=== PATIENT | male | born 1965 | race Caucasian/White ===

== ENCOUNTER 2024-12-30 22:32 | Emergency (ER) | payer OTHER, SELFPAY ==
[2024-12-30 22:38] VITALS: BP 112/85; O2SAT 100
[2024-12-30 22:41] VITALS: BP 112/85; PULSE 95; TEMP 36.3; O2SAT 100; BMI 25.8
[2024-12-30 22:46] LABS: Glucometer 113 mg/dL (74-106)
--- NOTE | 2024-12-30 22:51 | ECG_ITS ---
[facility] Test Date: 2024-12-30 Pat Name: MARIA G PATTERSON Department: Room: - Gender: Male Medical Lab Technologist: : 1965 Requested By: Chaz Mckeon Order Number: [id number] Reading MD: DORON RANDALL M.D. Measurements Intervals Hunters Rate: 98 P: 26 MN: 116 QRS: 41 QRSD: 86 T: 28 QT: 352 QTc: 408 Interpretive Statements 1100 Sinus rhythm 2210 Short MN interval 4068 Nonspecific Twave abnormality 6220 Possible left atrial enlargement 9150 abnormal ECG No previous ECG available for comparison Electronically Signed On 12-31-2024 13:59:51 EDT by DORON RANDALL M.D.
[2024-12-30 23:00] VITALS: BP 132/84; PULSE 91; O2SAT 100
[2024-12-30 23:06] LABS: Basophils Absolute Auto 0.1 10^3/uL (0.0-0.1); Basophils Percent Auto 0.5 % (0.2-2.0); Eosinophils Percent Auto 0.3 % (0.9-7.0); Hematocrit 25.8 % (42.0-54.0); Hemoglobin 8.3 g/dL (14.0-18.0); Immature Granulocytes Abs Auto 0.05 10^3/uL (0.00-0.03); Immature Granulocytes Pct Auto 0.5 % (0.0-0.5); Lymphocytes Absolute Auto 1.5 10^3/uL (1.2-3.8); Lymphocytes Percent Auto 13.7 % (20.5-60.0); Mean Corpuscular HGB Conc 32.2 g/dL (29.9-35.2); Mean Corpuscular Hemoglobin 30.4 pg (25.9-34.0); Mean Corpuscular Volume 94.5 fL (80.0-94.0); Mean Platelet Volume 10.2 fL (9.5-13.5); Monocytes Absolute Auto 0.8 10^3/uL (0.3-0.8); Monocytes Percent Auto 7.2 % (1.7-12.0); Neutrophils Absolute Auto 8.3 10^3/uL (1.4-6.5); Neutrophils Percent Auto 77.8 % (43.0-75.0); Platelet Count 331 10^3/uL (150-450); Red Blood Count 2.73 10^6/uL (4.70-6.10); Red Cell Distribution Width 14.1 % (11.0-15.0); White Blood Count 10.7 10^3/uL (4.0-11.0)
[2024-12-30] MEDS: 0.9 % SODIUM CHLORIDE 1,000 ML 999 ML IV (23:07)
[2024-12-30 23:12] VITALS: PULSE 98
[2024-12-30 23:28] LABS: Anion Gap 15.5; BUN Creatinine Ratio 45.9; Calcium 8.6 mg/dL (8.5-10.1); Carbon Dioxide 24.9 mmol/L (21.0-32.0); Chloride 101 mmol/L (98-107); Estimated GFR (African America >60 (>=60 mL/min/1.73m^2); Estimated GFR (Non-African Ame >60 (>=60 mL/min/1.73m^2); Glucose 137 mg/dL (74-106); Potassium 3.4 mmol/L (3.5-5.1); Sodium 138 mmol/L (136-145); Troponin I High Sensitivity 9.5 pg/mL (4.0-76.1)
[2024-12-30 23:30] VITALS: BP 130/73; PULSE 88; O2SAT 100
[2024-12-30 23:31] LABS: Lactate/Lactic Acid 2.7 mmol/L (0.4-2.0)
[2024-12-30 23:37] VITALS: BP 130/73; PULSE 86; O2SAT 98
--- NOTE | 2024-12-30 23:56 | ED_ITS ---
HPI - Syncope General Chief Complaint: Syncope Stated Complaint: DIZZINESS, PAIN BETWEEN SHOULDER BLADES Time Seen by Provider: 12/30/24 22:44 Source: patient Mode of arrival: walk-in History of Present Illness HPI narrative: cc -passed out The patient was brought in by for evaluation after he had an episode of passing out at home and was feeling dizzy and weak earlier today. He did not injure his head, neck, back or extremities during the syncopal episode. The was downstairs and heard him go to the ground. When she went to evaluate him he seemed spacey and was not able to look at me the way he normally does . Over the last several days, the patient told me he has been working outside, sweating a lot and exposed to the increased heat and sun. He told me that that he has decreased his appetite so he has not been eating appropriately and he also has been taking in decreased amounts of oral fluids -mostly water. No recent illness -no fever, chills, cough, nausea, vomiting or diarrhea He has not seen his PCP, Dr. Littlejohn, in many many years ago. Related Data Home Medications ?Medication ?Instructions ?Recorded ?Confirmed No Known Home Medications 12/30/2412/04 Allergies Allergy/AdvReac Type Severity Reaction Status Date / Time Penicillins Allergy Unknown Verified 12/30/24 22:44 PFSH PFSH Social History Little interest or pleasure in doing things: not at all Feeling down, depressed, or hopeless: not at all Exam Narrative Exam Narrative: Nurses notes and vital signs reviewed and patient is not hypoxic. afebrile General: Well-appearing and in no apparent distress. Skin: Warm, dry, no pallor noted. No rash. Head: Normocephalic, atraumatic. Neck: Supple, non-tender. No meningismus Eye: Pupils are equal, round and EOMI. No scleral icterus. Ears, Nose, Mouth, and Throat: Oral mucosa is dry Cardiovascular: Regular Rate and Rhythm without murmur, gallop or rub. Respiratory: No accessory muscle use or respiratory distress. Lungs are clear to auscultation, no wheezing, rales or rhonchi Chest Wall: no tenderness Back: No midline thoracic or lumbar vertebral tenderness. Musculoskeletal: normal ROM, no calf or popliteal tenderness, no lower extremity edema/swelling GI: Abdomen is soft, non-distended. Normal bowel sounds. No tenderness to palpation. No rebound, guarding, or rigidity noted. Neurological: A&O x4. No cranial nerve dysfunction observed. No truncal ataxia. Moves all extremities. Sensation intact. Psychiatric: Cooperative and interactive. Normal mood and affect. Constitutional Vital Signs, click to edit/add: Last Vital Signs Temp 97.3 F L 12/30/24 22:41 Pulse 86 12/30/24 23:37 Resp 20 12/30/24 23:37 BP 130/73 12/30/24 23:37 Pulse Ox 98 12/30/24 23:37 O2 Del Method Room Air 12/30/24 23:37 Course Vital Signs Vital signs: Vital Signs Blood Pressure 112/85 12/30/24 22:38 Pulse Oximetry 100 12/30/24 22:38 Temperature 97.3 F L 12/30/24 22:41 Pulse Rate 86 12/30/24 23:37 Respiratory Rate 20 12/30/24 23:37 Blood Pressure 130/73 12/30/24 23:37 Pulse Oximetry 98 12/30/24 23:37 Oxygen Delivery Method Room Air 12/30/24 23:37 MDM - Syncope MDM Narrative Medical decision making narrative: Patient was placed on career center director and EKG obtained. Blood drawn and sent for evaluation. He was given a liter of normal saline IV fluid. The patient's BUN is elevated at 34. He also has an elevated lactate of 2.7. White count is normal. He has mild anemia with hemoglobin 8.3 -he denies any dark black tar-like stool or other signs of GI bleeding. Troponin and BNP are negative. EKG does not reveal ischemic changes or ST elevation. After 1 L of normal saline IV fluid, the patient felt back to normal . He was able to set up unassisted and change position without any dizziness After the labs are resulted, he was ordered to receive a second liter of normal saline IV fluid before being discharged home with recommendation to follow-up with Dr. Littlejohn ED return if he worsens or develops any worrisome conditions/symptoms. Lab Data Attestation: I reviewed the patient's lab results. Labs: Lab Results 12/30/24 12/30/24 Range/Units 22:43 22:50 WBC 10.7 (4.0-11.0) 10^3/uL RBC 2.73 L (4.70-6.10) 10^6/uL Hgb 8.3 L (14.0-18.0) g/dL Hct 25.8 L (42.0-54.0) % MCV 94.5 H (80.0-94.0) fL MCH 30.4 (25.9-34.0) pg MCHC 32.2 (29.9-35.2) g/dL RDW 14.1 (11.0-15.0) % Plt Count 331 (150-450) 10^3/uL MPV 10.2 (9.5-13.5) fL Neut % (Auto) 77.8 H (43.0-75.0) % Lymph % (Auto) 13.7 L (20.5-60.0) % [place] % (Auto) 7.2 (1.7-12.0) % Eos % (Auto) 0.3 L (0.9-7.0) % Baso % (Auto) 0.5 (0.2-2.0) % Neut # (Auto) 8.3 H (1.4-6.5) 10^3/uL Lymph # (Auto) 1.5 (1.2-3.8) 10^3/uL [place] # (Auto) 0.8 (0.3-0.8) 10^3/uL Eos # (Auto) 0.0 (0.0-0.7) 10^3/uL Baso # (Auto) 0.1 (0.0-0.1) 10^3/uL Abs Immat Gran (auto) 0.05 H (0.00-0.03) 10^3/uL Imm/Tot Granulo (auto) 0.5 (0.0-0.5) % Sodium 138 (136-145) mmol/L Potassium 3.4 L (3.5-5.1) mmol/L Chloride 101 (98-107) mmol/L Carbon Dioxide 24.9 (21.0-32.0) mmol/L Anion Gap 15.5 BUN 34.0 H (7.0-18.0) mg/dL Creatinine 0.74 (0.70-1.30) mg/dL Est GFR ( Amer) >60 (>=60 mL/min/1.73m^2) Est GFR (Non-Af Amer) >60 (>=60 mL/min/1.73m^2) BUN/Creatinine Ratio 45.9 Glucose 137 H (74-106) mg/dL Lactate 2.7 H* (0.4-2.0) mmol/L Calcium 8.6 (8.5-10.1) mg/dL Troponin I High Sens 9.5 (4.0-76.1) pg/mL NT-Pro-B Natriuret Pep 42.0 (<=900.0) pg/mL POC Glucose 113 H (74-106) mg/dL ECG Data Attestation: I personally reviewed and interpreted this ECG as follows: Interpretation: EKG interpretation: Emergency Department physician interpretation. Normal sinus rhythm at 98bpm. Short CA interval, nonspecific T wave changes, left atrial enlargement. No ST segment elevation or depression. Discharge Plan Discharge Chief Complaint: Syncope Clinical Impression: Syncope, Acute kidney injury, Dehydration, Anemia Patient Disposition: Home, Self-Care Time of Disposition Decision: 00:01 Prescriptions / Home Meds: No Action No Known Home Medications Print Language: [place] Instructions: Dehydration (ED), Acute Kidney Injury (DC), Syncope (ED), Anemia (ED) Referrals: Physician,Non-Staff, MD [Primary Care Provider] - 1 week
[2024-12-31] MEDS: 0.9 % SODIUM CHLORIDE 1,000 ML 1000 ML IV (00:07)
[2024-12-31 01:11] VITALS: BP 158/78; PULSE 71; O2SAT 98
== END 2024-12-31 01:15 | disposition home or self-care (01) ==
PROVIDERS: Emergency Provider Emergency Medicine; Family Provider Family Medicine
DX: E86.0 Dehydration (principal); N17.9 Acute kidney failure, unspecified; R55 Syncope and collapse; D64.9 Anemia, unspecified
CPT/HCPCS: 36415; 80048; 83605; 83880; 84484; 85025; 93005; 96360; 96361; 99285